=== PATIENT | female | born 1950 | race Caucasian/White ===

== ENCOUNTER 2017-07-15 07:15 | Emergency (ER) | payer MEDICARE ==
[~2017-07-15] VITALS: Ht 162.6 cm; Wt 48.0 kg
[2017-07-15 07:15] VITALS: BP 146/84; PULSE 92; RESP 16; TEMP 97.7; O2SAT 99
[~2017-07-15 07:15] MED LIST: ALBU0.086 INH; BECL80AE3 INH; CIPR500T4 PO; IPRA0.02 INH; IPRAAER HHN; LORA1TAB PO; MONT10TA2 PO; PRED20 PO; PROB1TAB PO; RANI150 PO; SALM50I INH; SYNT50TA PO; VENTAER INH; Z.0.OXYGEN INH
[2017-07-15] MEDS ORDERED: LEVO.05 PO (07:28)
[2017-07-15] MEDS ORDERED: VENTAER INH (07:28)
[2017-07-15] MEDS ORDERED: SALM50I INH (07:28)
[2017-07-15] MEDS ORDERED: IPRAAER INH (07:28)
[2017-07-15] MEDS ORDERED: CLAR10CA3 PO (07:28)
[2017-07-15] MEDS ORDERED: LORA1TAB12 PO (07:28)
[2017-07-15] MEDS ORDERED: BECL80AE3 INH (07:28)
[2017-07-15] MEDS ORDERED: ZANT150T2 PO (07:28)
[2017-07-15] MEDS ORDERED: ALBU0.63 NEB (07:28)
--- NOTE | 2017-07-15 07:30 | PD ---
HPI Chief Complaint: Respiratory Symptoms Time Seen by Provider: 07:24 Travel History International Travel<30 days: No Contact w/Intl Traveler<30days: No History of Present Illness HPI patient is 66-year-old female presents emergency department for evaluation of shortness of breath now resolved. Patient states she has a history of COPD and [facility] they cleaned the bathroom was some form of chemical. The patient states that everything makes her short of breath when she smells something abnormal. She received 2 DuoNeb prior to arrival in the emergency department states she is at her baseline currently. She also takes Ativan for anxiety as well as several other medicines. She denies any chest pain denies any history of stasis denies abdominal pain or headaches. PFSH Past Medical History Arthritis: No Asthma: Yes Autoimmune Disease: No Blood Disorders: No Anxiety: Yes Depression: No Heart Rhythm Problems: No Cancer: Yes (CERVICAL, UTERINE, R KIDNEY) Cardiovascular Problems: No High Cholesterol: Yes Chemotherapy: No Chest Pain: No Congestive Heart Failure: No COPD: Yes (EMPHYSEMA) Cerebrovascular Accident: No Diabetes: No Diminished Hearing: No Endocrine: Yes Gastrointestinal Disorders: Yes (constipation) GERD: No Genitourinary: Yes (r kidney removed) Headaches: Yes Hepatitis: No Hiatal Hernia: No Hypertension: No Immune Disorder: No Implanted Vascular Access Dvce: No Kidney Stones: Yes Musculoskeletal: Yes Neurologic: Yes (shakiness/upper body tremors from inhaler usage) Psychiatric: Yes Reproductive: No Respiratory: Yes Immunizations Current: No Myocardial Infarction: No Radiation Therapy: No Renal Failure: No Seizures: No Sleep Apnea: No Thyroid Disease: Yes (HYPOTHYROID) Ulcer: No PNEUMOCCOCAL Vaccine (Year): 1 Menopausal: Yes Tubal Ligation: Yes Past Surgical History Abdominal Surgery: Yes (CHOLECYSTECTOMY 1985/KIDNEY&UTERINE, HYST ) AICD: No Cardiac Surgery: No Cholecystectomy: Yes Ear Surgery: No Endocrine Surgery: No Eye Surgery: No Genitourinary Surgery: Yes (RIGHT KIDNEY REMOVED) Gynecologic Surgery: Yes (SURGERY FOR CERVICAL/UTERINE CA; hyst; tubal) Hysterectomy: Yes Joint Replacement: No Neurologic Surgery: No Oral Surgery: Yes (edentulous) Pacemaker: No Thoracic Surgery: No Other Surgery: Yes (RIGHT NEPHRECTOMY; cyst on r breast) Social History Alcohol Use: No Tobacco Use: No (QUIT 13 YRS AGO) Substance Use: No Allergies-Medications (Allergen,Severity, Reaction): Coded Allergies: Influenza Virus Vaccines (Unverified Allergy, Severe, LEGS NUMB AND TONGUE SWELLING, 07/15/17) diphenhydramine (Unverified Allergy, Severe, MOUTH SWELLING, 07/15/17) iodine (Unverified Allergy, Severe, RASH AND TONGUE SWELLING, 07/15/17) morphine (Unverified Allergy, Severe, Itching, 07/15/17) penicillin G (Unverified Allergy, Severe, SWELL, 07/15/17) potassium iodide (Unverified Allergy, Severe, RASH AND TONGUE SWELLING, 08/21) povidone-iodine (Unverified Allergy, Severe, RASH AND TONGUE SWELLING, 08/21) sodium iodide (Unverified Allergy, Severe, RASH AND TONGUE SWELLING, ) sodium iodide (Unverified Allergy, Severe, RASH AND TONGUE SWELLING, ) codeine (Unverified Allergy, Mild, ITCHY, 07/15/17) fluticasone (Unverified Allergy, Mild, Shortness of Breath, 07/15/17) fluticasone furoate (Unverified Allergy, Mild, Shortness of Breath, ) levalbuterol (Unverified Allergy, Mild, Shortness of Breath, 07/15/17) metoclopramide (Unverified Allergy, Mild, ITCHING, 07/15/17) salmeterol (Unverified Allergy, Mild, Shortness of Breath, 07/15/17) Reported Meds & Prescriptions Reported Meds & Active Scripts Active Reported Lorazepam 1 Mg Tab 1 Mg PO BID Claritin (Loratadine) 10 Mg Cap 10 Mg PO DAILY Zantac (Ranitidine HCl) 150 Mg Tab 150 Mg PO BID Ventolin Hfa 18 GM Inh (Albuterol Sulfate) 90 Mcg/Act Aer 2 Puff INH Q4H PRN Albuterol Neb (Albuterol Sulfate) 0.63 Mg/3 Ml Neb 0.63 Mg NEB Q4HR NEB PRN Combivent Respimat Inh (Ipratropium-Albuterol Inh) 20-100 Senior Care/Act Aero 1 Puff INH QID Serevent Diskus Inh (Salmeterol Xinafoate) 50 Mcg/Act Aero 50 Mcg INH BID Qvar Inh (Beclomethasone Dipropionate) 80 Mcg/Act Aero 1 Puff INH BID Synthroid (Levothyroxine Sodium) 50 Mcg Tab 50 Mcg PO DAILY Review of Systems Except as stated in HPI: all other systems reviewed are Neg Physical Exam Narrative GENERAL: Well-developed well-nourished no obvious distress, thin. SKIN: Focused skin assessment warm/dry. HEAD: Atraumatic. Normocephalic. EYES: Pupils equal and round. No scleral icterus. No injection or drainage. ENT: No nasal bleeding or discharge. Mucous membranes pink and moist. NECK: Trachea midline. No JVD. CARDIOVASCULAR: Regular rate and rhythm. No murmur appreciated. RESPIRATORY: No accessory muscle use. Clear to auscultation. Breath sounds equal bilaterally. GASTROINTESTINAL: Abdomen soft, non-tender, nondistended. Hepatic and splenic margins not palpable. MUSCULOSKELETAL: No obvious deformities. No clubbing. No cyanosis. No edema. NEUROLOGICAL: Awake and alert. No obvious cranial nerve deficits. Motor grossly within normal limits. Normal speech. PSYCHIATRIC: Appropriate mood and affect; insight and judgment normal. Data Data Last Documented VS Vital Signs Date Time Temp Pulse Resp B/P (MAP) Pulse Ox O2 Delivery O2 Flow Rate FiO2 07/15/17 07:35 99 Nasal Cannula 2.00 07/15/17 07:15 97.7 92 16 146/84 (104) [facility] Medical Decision Making Medical Screen Exam Complete: Yes Emergency Medical Condition: Yes Differential Diagnosis COPD exacerbation, anxiety, shortness of breath, adjustment disorder. Narrative Course patient roomed emergency department, she appears well in no distress and was observed in emerged permit for approximately an hour. At this time I do not think any workup is warranted. Discussed symptomatic management, she does have an inhaler. She wishes for discharge and her friend is come to pick her up. Diagnosis Primary Impression: Acute exacerbation of chronic obstructive pulmonary disease (COPD) Disposition: 01 DISCHARGE HOME Condition: Stable Ernie Linton MD Jul 15, 2017 07:30
== END 2017-07-15 08:16 | disposition home or self-care (01) ==
LOC: PHED 07:15
DX: J44.1 Chronic obstructive pulmonary disease with (acute) exacerbation (principal); Z87.891 Personal history of nicotine dependence
CPT/HCPCS: 99281